=== PATIENT | male | born 2000 | race Caucasian/White ===

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

== ENCOUNTER 2024-05-11 15:00 | Inpatient (IN) | payer BC, MEDICAID ==
--- NOTE | 2024-05-11 16:06 | ED ---
General Adult HPI - General Chief complaint: Psychiatric Symptoms Stated complaint: Petition Time Seen by Provider: 05/11/24 15:37 Source: patient, RN notes reviewed, old records reviewed Mode of arrival: ambulatory Limitations: no limitations - History of Present Illness Initial comments: 24-year-old male presenting for psychiatric evaluation, patient has been petitioned for mental health evaluation. He states that he is stressed. He is not taking his medication. He states he is addicted to marijuana and Adderall. He denies suicidal or homicidal ideation currently but is vague in his responses. - Related Data Home Medications Medication Instructions Recorded Confirmed Dextroamphetamine/Amphetamine 20 mg PO BID 05/11/24 05/11/24 [Adderall Xr 20 mg Capsule] FLUoxetine HCL [PROzac] 40 mg PO DAILY 05/11/24 05/11/24 Allergies Allergy/AdvReac Type Severity Reaction Status Date / Time No Known Allergies Allergy Verified 05/11/24 16:58 Review of Systems ROS Statement: Those systems with pertinent positive or pertinent negative responses have been documented in the HPI. ROS Other: All systems not noted in ROS Statement are negative. Past Medical History Past Medical History: No Reported History History of Any Multi-Drug Resistant Organisms: MRSA Date of last positivie culture/infection: 2004 MDRO Source:: NASAL Additional Past Surgical History / Comment(s): LEFT ACL REPAIR (2018). Past Anesthesia/Blood Transfusion Reactions: No Reported Reaction Past Psychological History: Bipolar Smoking Status: Vaper Past Alcohol Use History: None Reported Past Drug Use History: None Reported, Marijuana - Past Family History Mother Family Medical History: No Reported History General Exam Limitations: no limitations General appearance: alert, anxious Head exam: Present: atraumatic, normocephalic Eye exam: Present: normal appearance, PERRL Respiratory exam: Present: normal lung sounds bilaterally. Absent: respiratory distress, wheezes Cardiovascular Exam: Present: regular rate, normal rhythm GI/Abdominal exam: Absent: distended Psychiatric exam: Present: depressed, anxious Skin exam: Present: warm, dry, intact Course Vital Signs 05/11/24 15:18 Temperature 98.3 F Pulse Rate 109 H Respiratory 20 Rate Blood Pressure 137/84 O2 Sat by Pulse 95 Oximetry Medical Decision Making - Medical Decision Making Was pt. sent in by a medical professional or institution (, PA, ENTERPRISE ENGINEER, urgent care, hospital, or retirement...) When possible be specific @ -No Did you speak to anyone other than the patient for history (EMS, parent, family, police, friend...)? What history was obtained from this source @ -No Did you review nursing and triage notes (agree or disagree)? Why? @ -I reviewed and agree with nursing and triage notes Were old charts reviewed (outside hosp., previous admission, EMS record, old EKG, old radiological studies, urgent care reports/EKG's, retirement records)? Report findings @ -No old charts were reviewed Differential Mental Health Depression, anxiety, bipolar, psychosis, schizophrenia, borderline personality, situational depression, adjustment disorder, behavioral disorder, brain tumor, malingering, substance abuse, encephalopathy, medication reaction, dementia, hypothyroidism, degenerative neurologic disorder, lupus.... This is not meant to be all-inclusive list EKG interpreted by me (3pts min.). @ -As above X-rays interpreted by me (1pt min.). @ -None done CT interpreted by me (1pt min.). @ -None done U/S interpreted by me (1pt. min.). @ -None done What testing was considered but not performed or refused? (CT, X-rays, U/S, labs)? Why? @ -None What meds were considered but not given or refused? Why? @ -None Did you discuss the management of the patient with other professionals (professionals i.e. , PA, ENTERPRISE ENGINEER, lab, RT, psych nurse, long term care social worker, public works director, teacher, project control officer, sales administration manager)? Give summary @ -No Was smoking cessation discussed for >3mins.? @ -No Was critical care preformed (if so, how long)? @ -No Were there social determinants of health that impacted care today? How? (Homelessness, low income, unemployed, alcoholism, drug addiction, t ransportation, low edu. Level, literacy, decrease access to med. care, [place] [facility], rehab)? @ -No Was there de-escalation of care discussed even if they declined (Discuss DNR or withdrawal of care, Hospice)? DNR status @ -No What co-morbidities impacted this encounter? (DM, HTN, Smoking, COPD, CAD, Cancer, CVA, ARF, Chemo, Hep., AIDS, mental health diagnosis, sleep apnea, morbid obesity)? @ -None Was patient admitted / discharged? Hospital course, mention meds given and route, prescriptions, significant lab abnormalities, going to OR and other pertinent info. @ -Patient medically cleared and evaluated by EPS, will be admitted to this institution for further psychiatric care. I completed a clinical certification on this patient. Undiagnosed new problem with uncertain prognosis? @ -No Drug Therapy requiring intensive monitoring for toxicity (Heparin, Nitro, Insulin, Cardizem)? @ -No Were any procedures done? @ -No Diagnosis/symptom? @ -Acute psychosis, medication noncompliance, depression Acute, or Chronic, or Acute on Chronic? @ -Acute on chronic Uncomplicated (without systemic symptoms) or Complicated (systemic symptoms)? @ -Default Side effects of treatment? @ -No Exacerbation, Progression, or Severe Exacerbation? @ -No Poses a threat to life or bodily function? How? (Chest pain, USA, AR, pneumonia, PE, COPD, DKA, ARF, appy, cholecystitis, CVA, Diverticulitis, Homicidal, Suicidal, threat to staff... and all critical care pts) @ -No - Lab Data Lab Results 05/11/24 Range/Units 17:04 Urine Opiates Screen Not Detected (NotDetected) Ur Oxycodone Screen Not Detected (NotDetected) Urine Methadone Screen Not Detected (NotDetected) Ur Barbiturates Screen Not Detected (NotDetected) U Tricyclic Antidepress Not Detected (NotDetected) Ur Phencyclidine Scrn Not Detected (NotDetected) Ur Amphetamines Screen Detected H (NotDetected) U Methamphetamines Scrn Not Detected (NotDetected) U Benzodiazepines Scrn Detected H (NotDetected) Urine Cocaine Screen Not Detected (NotDetected) U Marijuana (THC) Screen Detected H (NotDetected) Disposition Clinical Impression: Depression, Acute psychosis Disposition: ADMITTED IP TO THIS HOSP Condition: Stable Is patient prescribed a controlled substance at d/c from ED?: No Referrals: None,Stated [Primary Care Provider] - 1-2 days Time of Disposition: 19:07
[2024-05-11 17:26] LABS: Amphetamine Screen,Urine Detected (NotDetected); Barbiturate Screen,Urine Not Detected (NotDetected); Benzodiazepines Screen,Urine Detected (NotDetected); Cocaine Screen,Urine Not Detected (NotDetected); Methadone Screen, Urine Not Detected (NotDetected); Opiate Screen,Urine Not Detected (NotDetected); Oxycodone Screen, Urine Not Detected (NotDetected); Phencyclidine Screen,Urine Not Detected (NotDetected); Tricyclic Antidepressant,Urine Not Detected (NotDetected); Urn Cannabinoid Scrn Detected (NotDetected)
[2024-05-11] MEDS: traZODone HCL 50 MG TAB PO ONE (19:56)
[2024-05-11] MEDS ORDERED: ACETAMINOPHEN TAB 325 MG TAB PO PRN (21:34)
[2024-05-11] MEDS ORDERED: MAGNESIUM HYDROXIDE 2,400 MG/30 ML CUP PO PRN (21:34)
[2024-05-11] MEDS ORDERED: haloperidoL 5 MG TAB PO PRN (21:34)
[2024-05-11] MEDS ORDERED: MAG HYDROX/AL HYDROX/SIMETH 355 ML BOTTLE PO PRN (21:34)
[2024-05-11] MEDS ORDERED: LORazepam 2 MG/ML INJ IM PRN (21:34)
[2024-05-11] MEDS ORDERED: HALOPERIDOL LACTATE 5 MG/ML 1 ML VIAL IM PRN (21:34)
[2024-05-11] MEDS: LORazepam 2 MG/ML INJ IM STA (21:56)
[2024-05-12] MEDS: LORazepam 1 MG TAB PO PRN (03:37)
[2024-05-12] MEDS: NICOTINE 21MG/24HR PATCH TRANSDERM SCH (08:28)
[2024-05-12] MEDS: FLUoxetine HCL 20 MG CAP PO SCH (08:28)
[2024-05-12 11:02] LABS: Basophils % (A) 0 %; Eosinophils # (A) 0.1 k/uL (0-0.7); Eosinophils % (A) 1 %; HCT 47.3 % (39.0-53.0); HGB 15.7 gm/dL (13.0-17.5); Lymphocytes # (A) 1.4 k/uL (1.0-4.8); Lymphocytes % (A) 25 %; MCH 31.4 pg (25.0-35.0); MCHC 33.2 g/dL (31.0-37.0); MCV 94.7 fL (80.0-100.0); Monocytes # (A) 0.3 k/uL (0-1.0); Monocytes % (A) 6 %; Neutrophils # (A) 3.6 k/uL (1.3-7.7); Neutrophils % (A) 66 %; Platelet Count 425 k/uL (150-450); RBC 4.99 m/uL (4.30-5.90); RDW 13.6 % (11.5-15.5); WBC 5.5 k/uL (3.8-10.6)
[2024-05-12 11:26] LABS: ALT 31 U/L (4-49); AST 26 U/L (17-59); African American GFR (CKD) >90 (>60 ml/min/1.73 sqM); Albumin 4.7 g/dL (3.5-5.0); Alkaline Phosphatase 36 U/L (38-126); Anion Gap 10 mmol/L; Bilirubin, Delta 0.1 mg/dL (0.0-0.2); Bilirubin,Unconjugated 0.9 mg/dL (0.0-1.1); Blood Urea Nitrogen 12 mg/dL (9-20); Calcium 9.8 mg/dL (8.4-10.2); Carbon Dioxide 29 mmol/L (22-30); Chloride 102 mmol/L (98-107); Glucose 99 mg/dL (74-99); Non-African American GFR(CKD) >90 (>60 ml/min/1.73 sqM); Potassium 4.3 mmol/L (3.5-5.1); Sodium 141 mmol/L (137-145); Total Protein 7.3 g/dL (6.3-8.2)
--- NOTE | 2024-05-12 11:39 | P.MDCNMH ---
History of Present Illness H&P Date: 05/12/24 Chief Complaint: Medical evaluation for mental health unit 24-year-old male with medical history of ADHD, depression presented for mental health evaluation. Patient has no complaints at this time. Patient says he has no past medical history. He does report active nicotine use, occasional alcohol use. Otherwise denies any other symptoms. Patient is hemodynamically stable. Urine tox screen is positive for amphetamines, benzodiazepines, marijuana. CBC, CMP are unremarkable. COVID is negative. No imaging to review. All Systems reviewed and pertinent positives and negatives noted in HPI, all other symptoms are negative Gen: In NAD, non-toxic HEENT: normocephalic, atraumatic, hearing acuity is intant, mucous membranes moist CVS: perfusing all extremities well, no pitting edema, Respiratory: symmetric chest expansion, no accessory muscle use, GI: soft, NTTP, ND, : no suprapubic tenderness, no CVA tenderness MSK/Derm: no rashes, cyanosis Neuro: CN II-XII intact, no motor weakness, Psych: cooperative, euthymic mood, judgment and insight is intact Labs and imaging as above Assessment/plan: Nicotine abuse -NRT on request -Cessation counseling recommended Polysubstance abuse Depression -Care per primary team Thank you for this consult, please reach out with any questions or concerns. Past Medical History Past Medical History: No Reported History History of Any Multi-Drug Resistant Organisms: MRSA Date of last positivie culture/infection: 2004 MDRO Source:: NASAL Additional Past Surgical History / Comment(s): LEFT ACL REPAIR (2018). Past Anesthesia/Blood Transfusion Reactions: No Reported Reaction Past Psychological History: Bipolar Smoking Status: Vaper Past Alcohol Use History: None Reported Past Drug Use History: None Reported, Marijuana - Past Family History Mother Family Medical History: No Reported History Medications and Allergies Home Medications Medication Instructions Recorded Confirmed Type Dextroamphetamine/Amphetamine 20 mg PO BID 05/11/24 05/11/24 History [Adderall Xr 20 mg Capsule] FLUoxetine HCL [PROzac] 40 mg PO DAILY 05/11/24 05/11/24 History Allergies Allergy/AdvReac Type Severity Reaction Status Date / Time No Known Allergies Allergy Verified 05/11/24 16:58 Physical Exam Osteopathic Statement: *. No significant issues noted on an osteopathic struc tural exam other than those noted in the History and Physical/Consult. Vitals: Vital Signs Temp Pulse Pulse Resp BP BP Pulse Ox 05/12/24 08:29 96.8 F L 86 122/72 98 05/11/24 23:22 98.3 F 73 16 128/79 98 05/11/24 21:49 98 F 69 18 98/50 99 05/11/24 15:18 98.3 F 109 H 20 137/84 95 Intake and Output 05/11/24 05/12/24 05/12/24 22:59 06:59 14:59 Other: Weight 57.606 kg Cranial Nerve Examination - Cranial Nerves Cranial Nerve II- Optic: Intact Cranial Nerve III- Oculomotor: Intact Cranial Nerve IV- Trochlear: Intact Cranial Nerve V- Trigeminal: Intact Cranial Nerve - Abducens: Intact Cranial Nerve VII- Facial: Intact Cranial Nerve VIII- Auditory: Intact Cranial Nerve IX- Glossopharyngeal: Intact Cranial Nerve X- Vagus: Intact Cranial Nerve XI- Accessory: Intact Cranial Nerve XII- Hypoglossal: Intact Results CBC & Chem 7: 05/12/24 10:47 05/12/24 10:47 Labs: Abnormal Lab Results - Last 24 Hours (Table) 05/11/24 05/12/24 Range/Units 17:04 10:47 Alkaline Phosphatase 36 L (38-126) U/L Ur Amphetamines Screen Detected H (NotDetected) U Benzodiazepines Scrn Detected H (NotDetected) U Marijuana (THC) Screen Detected H (NotDetected)
--- NOTE | 2024-05-12 13:33 | P.HP ---
Psychiatric H&P - . H&P Date: 05/12/24 History & Physical: Allergies Allergy/AdvReac Type Severity Reaction Status Date / Time No Known Allergies Allergy Verified 05/11/24 16:58 Vital Signs Temp 96.8 F L 05/12/24 08:29 Pulse 86 05/12/24 08:29 Resp 16 05/11/24 23:22 BP 122/72 05/12/24 08:29 Pulse Ox 98 05/12/24 08:29 FiO2 Intake & Output 05/11/24 05/12/24 05/12/24 18:59 06:59 18:59 Weight 57.606 kg Laboratory Last Values WBC 5.5 k/uL (3.8-10.6) 05/12/24 10:47 RBC 4.99 m/uL (4.30-5.90) 05/12/24 10:47 Hgb 15.7 gm/dL (13.0-17.5) 05/12/24 10:47 Hct 47.3 % (39.0-53.0) 05/12/24 10:47 MCV 94.7 fL (80.0-100.0) 05/12/24 10:47 MCH 31.4 pg (25.0-35.0) 05/12/24 10:47 MCHC 33.2 g/dL (31.0-37.0) 05/12/24 10:47 RDW 13.6 % (11.5-15.5) 05/12/24 10:47 Plt Count 425 k/uL (150-450) 05/12/24 10:47 MPV 7.0 05/12/24 10:47 Neutrophils % 66 % 05/12/24 10:47 Lymphocytes % 25 % 05/12/24 10:47 Monocytes % 6 % 05/12/24 10:47 Eosinophils % 1 % 05/12/24 10:47 Basophils % 0 % 05/12/24 10:47 Neutrophils # 3.6 k/uL (1.3-7.7) 05/12/24 10:47 Lymphocytes # 1.4 k/uL (1.0-4.8) 05/12/24 10:47 Monocytes # 0.3 k/uL (0-1.0) 05/12/24 10:47 Eosinophils # 0.1 k/uL (0-0.7) 05/12/24 10:47 Basophils # 0.0 k/uL (0-0.2) 05/12/24 10:47 Sodium 141 mmol/L (137-145) 05/12/24 10:47 Potassium 4.3 mmol/L (3.5-5.1) 05/12/24 10:47 Chloride 102 mmol/L (98-107) 05/12/24 10:47 Carbon Dioxide 29 mmol/L (22-30) 05/12/24 10:47 Anion Gap 10 mmol/L 05/12/24 10:47 BUN 12 mg/dL (9-20) 05/12/24 10:47 Creatinine 0.80 mg/dL (0.66-1.25) 05/12/24 10:47 Est GFR (CKD-EPI)AfAm >90 (>60 ml/min/1.73 sqM) 05/12/24 10:47 Est GFR (CKD-EPI)NonAf >90 (>60 ml/min/1.73 sqM) 05/12/24 10:47 Glucose 99 mg/dL (74-99) 05/12/24 10:47 Calcium 9.8 mg/dL (8.4-10.2) 05/12/24 10:47 Total Bilirubin 1.0 mg/dL (0.2-1.3) 05/12/24 10:47 Conjugated Bilirubin 0.0 mg/dL (0.0-0.3) 05/12/24 10:47 Unconjugated Bilirubin 0.9 mg/dL (0.0-1.1) 05/12/24 10:47 Delta Bilirubin 0.1 mg/dL (0.0-0.2) 05/12/24 10:47 AST 26 U/L (17-59) 05/12/24 10:47 ALT 31 U/L (4-49) 05/12/24 10:47 Alkaline Phosphatase 36 U/L (38-126) L 05/12/24 10:47 Total Protein 7.3 g/dL (6.3-8.2) 05/12/24 10:47 Albumin 4.7 g/dL (3.5-5.0) 05/12/24 10:47 TSH 0.645 mIU/L (0.465-4.680) 05/12/24 10:47 Urine Opiates Screen Not Detected (NotDetected) 05/11/24 17:04 Ur Oxycodone Screen Not Detected (NotDetected) 05/11/24 17:04 Urine Methadone Screen Not Detected (NotDetected) 05/11/24 17:04 Ur Barbiturates Screen Not Detected (NotDetected) 05/11/24 17:04 U Tricyclic Antidepress Not Detected (NotDetected) 05/11/24 17:04 Ur Phencyclidine Scrn Not Detected (NotDetected) 05/11/24 17:04 Ur Amphetamines Screen Detected (NotDetected) H 05/11/24 17:04 U Methamphetamines Scrn Not Detected (NotDetected) 05/11/24 17:04 U Benzodiazepines Scrn Detected (NotDetected) H 05/11/24 17:04 Urine Cocaine Screen Not Detected (NotDetected) 05/11/24 17:04 U Marijuana (THC) Screen Detected (NotDetected) H 05/11/24 17:04 SARS-CoV-2 (PCR) Not Detected (Not Detectd) 05/11/24 19:22 05/12/24 13:09 IDENTIFYING DATA: Patient is a 24-year-old male, he is currently unmarried, has no kids, he lives with his grandmother, unemployed HPI: Patient presented to the hospital yesterday on 05/11 on a petition for psychiatric evaluation. Patient was apparently endorsing being stressed, not taking his medications. In the ER he spoke about being "addicted" to marijuana and Adderall. His UDS is positive for amphetamines THC THC and benzodiazepines. Patient was admitted involuntarily to mental health unit. Patient was seen in his room today. He apparently was agitated this morning and demanding to speak with his mother. He was seen laying in bed he appears to be disheveled in appearance, endorsing anxiety and unstable mood. He was tearful at times and appeared to be impulsive. States that he "could not get off my medications". Claims that he had to keep on taking it. He was referring to Adderall and Prozac. He states that he stopped cold turkey and developed nausea and vomiting, also mood swings. Claims that his friend brought him into the hospital for evaluation. He is minimizing any mood issues at this time is endorsing anxiety. Claims that he was upset earlier because "I could not talk to my mom". Claims that he was scared of the door handle earlier today. He is endorsing some paranoia at this time, claims that his sleep and appetite are poor. He has very poor insight poor judgment, does not believe he needs medications and wants to go home. Patient denies any suicidal or homicidal ideations intent or plan. At this time patient denies any auditory or visual hallucinations. Patient denies any flight of ideas racing thoughts and increased in goal directed behavior. Patient admits to using marijuana heavy use regularly, also claims that he has been using Adderall however was vague about how much he is using. Denies any other recreational drug use PAST PSYCHIATRIC HISTORY: Patient has a history of suppose it bipolar disorder. Claims that he is currently on Adderall and Prozac. Patient denies any previous psychiatric hospitalizations. Patient denies any psychiatric outpatient follow- up. Patient denies any history of suicide attempts in the past. Past Medical History: No Reported History History of Any Multi-Drug Resistant Organisms: MRSA Date of last positivie culture/infection: 2004 MDRO Source:: NASAL Additional Past Surgical History / Comment(s): LEFT ACL REPAIR (2018). 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 He is single he has no kids he lives with his grandmother. He denies any legal history. MENTAL STATUS EXAM: General Appearance: Patient appears to be thin, disheveled hair in appearance, wearing hospital gown, stated age is alert, irritable at times agitated and impulsive. Patient appears to have poor hygiene and grooming. Behavior: Patient is agitated at times, irritable and impulsive Speech: Patient's speech is fluent and nonpressured. Spontaneous. Irritable tone Mood/Affect: Patient reports their mood is "anxious", affect is congruent and labile, tearful at times Suicidality/Homicidality: Patient denies having any homicidal ideation intent or plan. Denies any suicidal ideations intent or plan Perceptions: Patient denies any visual hallucinations and denies any auditory hallucinations Though content/process: Minimizing his need for medications and to be in the hospital. Poor insight poor judgment. Memory and concentration: AOX3, grossly intact for the purposes of this session. Can spell "WORLD" backwards Judgment and insight: Poor/impulsive STRENGTHS/WEAKNESSES: strength is that patient is resilient. 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 Patient has not signed adult voluntary form and has not signed medication consent and is placed in patient's chart. A second certification was completed and along with petition will be filed for court. -Medications : Seroquel 50 mg nightly for mood stabilization/psychosis/sleep, trazodone 50 mg nightly as needed for insomnia. Can continue with Prozac 40 mg daily for mood/anxiety. Discontinue Adderall at this time -Ativan and Haldol PRN for agitation/aggression Patient states they do not want rehab and wish to cut back subtance use on their own -Patient was informed of the risks, benefits and side effects of the medications . Patient did not signed med consent form and was placed in chart. Patient was offered medication information and declined it -Internal Medicine consult to perform medical evaluation and physical. -NRT -not needed as patient does not smoke -SW on board for discharge planning. Encourage patient to participate in groups to work on coping skills. Will await deferral and court date. 05/12/24 13:25
[2024-05-12] MEDS: QUEtiapine 25 MG TAB PO STA (14:08)
[2024-05-12] MEDS: QUEtiapine 50 MG TAB PO SCH (21:42)
[2024-05-12] MEDS: traZODone HCL 50 MG TAB PO PRN (21:44)
[2024-05-13 07:51] LABS: Chol/HDL Ratio 2.94 Ratio; LDL Cholesterol,Calculated 84.9 mg/dL (0.0-131.0); VLDL Calculation 12.76 mg/dL (5.00-40.00)
--- NOTE | 2024-05-13 10:11 | P.PN ---
Progress Note - Text Progress Note Date: 05/13/24 Interval history: Patient was seen laying in his bed today and was directable and agreeable to speak with news writer. Patient continues to be intrusive at times, labile. He claims that his "sewage reticulation drafting officer" was going to visit him today. He continues to be focused on discharge very poor insight poor judgment poor impulse control. He lied to news writer and claims that he took all of his medications however did not take Prozac yesterday and Seroquel last night. He continues to state that he is not need treatment, we reviewed the court process. Claims that he slept fairly last night, has a fair appetite. Mainly keeping himself in his room. At this time patient denies any suicidal or homicidal ideations intent or plan. Denies any Auditory or visual hallucinations. Mental status exam: General Appearance: Patient appears to be thin, tall, disheveled appearance stated age is alert, directable, and attempts to be cooperative. Behavior: No agitated behavior. Patient is calm and directable, deceptive Speech: Patient's speech is fluent and nonpressured. [place] Mood/Affect: Mood is improving mildly, affect is congruent and labile Suicidality/Homicidality: Patient denies having any suicidal or homicidal ideation intent or plan. Perceptions: Patient denies any auditory or visual hallucinations. Though content/process: There is no evidence of any delusional thought content and thought process is linear and goal-directed. Deceptive Memory and concentration: AOX3, grossly intact for the purposes of this session Judgment and insight: Poor Assessment/Plan: Continue with current diagnosis. Patient continues to meet criteria for inpatient psychiatric admission for symptom stabilization and safety. Patient will be maintained on current psychotropic medication regimen. Monitor for medication compliance and for any psychotropic medication side effects. Will continue to monitor ongoing response to treatment. Encouraged participation in milieu.
[2024-05-14 08:46] VITALS: RESP 16
--- NOTE | 2024-05-14 11:30 | P.PN ---
Progress Note - Text Progress Note Date: 05/14/24 Interval History: Patient was seen today for psychiatric follow-up. He was laying in his bed to day, awoke very easily and agreeable to speak to sports book writer. He remains a bit intrusive, claims that his irritability and mood swings have been improving mildly. He continues to refuse the Seroquel at nighttime, has been sleeping on and off. We spoke more about the side effects benefits about the medication, he states that he was agreeable to take it for tonight. He was fairly focused on discharge planning within the next couple days. He states that he would probably be signing the deferral today and is agreeing to treatment. Claims that his appetite is improving. We reflected back on reducing the amount of marijuana he smokes and also the Adderall which most likely has been contributing to his mood swings and psychosis. At this time he is denying any suicidal homicidal ideations intent or plan denying any auditory or visual hallucinations. Not reporting any side effects at this time. MENTAL STATUS EXAM: General Appearance: Patient appears to be thin, disheveled hair in appearance, wearing hospital gown, stated age is alert, not agitated and veins impulsive. Patient appears to have improving mildly hygiene and grooming. Behavior: Patient is not agitated, not irritable, remains a bit impulsive Speech: Patient's speech is fluent and nonpressured. Spontaneous. Not irritable today Mood/Affect: Patient reports their mood is "better", affect is congruent and labile improving Suicidality/Homicidality: Patient denies having any homicidal ideation intent or plan. Denies any suicidal ideations intent or plan Perceptions: Patient denies any visual hallucinations and denies any auditory hallucinations Though content/process: More cooperative today, focused on his medications, focused on discharge. Not endorsing delusions or paranoia. Memory and concentration: AOX3, grossly intact for the purposes of this session Judgment and insight: Poor/impulsive, improving mildly IMPRESSIONS: Psychosis unspecified, rule out secondary to substance use/withdrawal, versus bipolar disorder versus schizophrenia amphetamine abuse Cannabis use disorder severe PLAN: -Patient is admitted under involuntary status to MHU for stabilization of psychiatric symptoms and safety. Patient has not signed adult voluntary form and has not signed medication consent and is placed in patient's chart. -Medications : Seroquel 50 mg nightly for mood stabilization/psychosis/sleep, trazodone 50 mg nightly as needed for insomnia. Prozac 40 mg daily for mood/anxiety. -Ativan and Haldol PRN for agitation/aggression -NRT -not needed as patient does not smoke -SW on board for discharge planning. Encourage patient to participate in groups to work on coping skills. Deferral set for today, full court hearing on 05/16. Hopeful for discharge in 2 to 3 days if patient is improving, he is refusing rehab at this time.
--- NOTE | 2024-05-15 10:21 | P.PN ---
Progress Note - Text Progress Note Date: 05/15/24 Interval History: Patient was seen today for psychiatric follow-up. Patient was wandering the h allways agreeable to speak to science writer. Claims that he feels another patient has been making him feel a "uneasy" because he is trying to be his friend. He claims that he has been showering going to groups, has been doing well. Claims that he is not having mood swings any longer feels less irritable not endorsing depression today. Claims that he would like to go home within the next couple of days. States that he felt "a little off" after taking the Seroquel however is agreeable to continue trying it at nighttime and claims that during the day he feels better. Denying any mood swings at this time. Appears to have mild improvement in his insight and judgment. Claims that he signed the deferral with the research attorney yesterday. At this time he is denying any suicidal homicidal ideations intent or plan denying any auditory or visual hallucinations. Not reporting any side effects at this time. MENTAL STATUS EXAM: General Appearance: Patient appears to be thin, disheveled hair in appearance, wearing hospital gown, stated age is alert, not agitated. Patient appears to have improving mildly hygiene and grooming. Behavior: Patient is not agitated, not irritable, more cooperative today Speech: Patient's speech is fluent and nonpressured. Spontaneous. Not irritable today Mood/Affect: Patient reports their mood is "alright", affect is congruent and labile improving Suicidality/Homicidality: Patient denies having any homicidal ideation intent or plan. Denies any suicidal ideations intent or plan Perceptions: Patient denies any visual hallucinations and denies any auditory hallucinations Though content/process: More cooperative today, focused on his medications, focused on discharge. Not endorsing delusions or paranoia. Memory and concentration: AOX3, grossly intact for the purposes of this session Judgment and insight: improving mildly IMPRESSIONS: Psychosis unspecified, rule out secondary to substance use/withdrawal, versus bipolar disorder versus schizophrenia amphetamine abuse Cannabis use disorder severe PLAN: -Patient is admitted under involuntary status to MHU for stabilization of psychiatric symptoms and safety. Patient has not signed adult voluntary form and has not signed medication consent and is placed in patient's chart. -Medications : Seroquel 50 mg nightly for mood stabilization/psychosis/sleep, trazodone 50 mg nightly as needed for insomnia. Prozac 40 mg daily for mood/anxiety. -Ativan and Haldol PRN for agitation/aggression -NRT -not needed as patient does not smoke -SW on board for discharge planning. Encourage patient to participate in groups to work on coping skills. patient deferred with his research attorney on 05/14. Hopeful for discharge in 1-2 if patient is improving, he is refusing rehab at this time.
[2024-05-16 06:53] VITALS: BP 136/63; PULSE 61; TEMP 98.1
[2024-05-16] MEDS: IBUPROFEN 600 MG TAB PO PRN (07:50)
--- NOTE | 2024-05-16 10:21 | P.DS ---
Providers Date of admission: 05/11/24 21:27 Expected date of discharge: 05/16/24 Attending physician: Werner Good MD Consults: 05/11/24 21:34 Consult Physician Routine Consulting Provider: Presley Strong Consult Reason/Comments: History and Physical, New Admission Do you want consulting provider notified?: Yes Primary care physician: Stated None - Discharge Diagnosis(es) (1) Unspecified psychosis Current Visit: Yes Status: Acute Priority: High (2) Amphetamine abuse Current Visit: Yes Status: Acute Priority: High (3) Cannabis use disorder, severe, dependence Current Visit: Yes Status: Acute Priority: High (4) Nicotine dependence Current Visit: Yes Status: Acute Priority: Low Hospital Course: Admission HPI: Admission note was completed by sba underwriter" Patient is a 24-year-old male, he is currently unmarried, has no kids, he lives with his grandmother, unemployed. Patient presented to the hospital yesterday on 05/11 on a petition for psychiatric evaluation. Patient was apparently endorsing being stressed, not taking his medications. In the ER he spoke about being "addicted" to marijuana and Adderall. His UDS is positive for amphetamines THC THC and benzodiazepines. Patient was admitted involuntarily to mental health unit. Patient was seen in his room today. He apparently was agitated this morning and demanding to speak with his mother. He was seen laying in bed he appears to be disheveled in appearance, endorsing anxiety and unstable mood. He was tearful at times and appeared to be impulsive. States that he "could not get off my medications". Claims that he had to keep on taking it. He was referring to Adderall and Prozac. He states that he stopped cold turkey and developed nausea and vomiting, also mood swings. Claims that his friend brought him into the hospital for evaluation. He is minimizing any mood issues at this time is endorsing anxiety. Claims that he was upset earlier because "I could not talk to my mom". Claims that he was scared of the door handle earlier today. He is endorsing some paranoia at this time, claims that his sleep and appetite are poor. He has very poor insight poor judgment, does not believe he needs medications and wants to go home. Patient denies any suicidal or homicidal ideations intent or plan. At this time patient denies any auditory or visual hallucinations. Patient denies any flight of ideas racing thoughts and increased in goal directed behavior. Patient admits to using marijuana heavy use regularly, also claims that he has been using Adderall however was vague about how much he is using. Denies any other recreational drug use" Hospital course: Upon admission to the unit patient was admitted involuntarily on a petition and certificate and a second certificate was completed and faxed to the courts. Patient ended up signing a deferral with the assistant attorney general and agreeing to treatment. Patient was initially bizarre, impulsive labile however with time and treatment patient got along well with other patients on the unit and followed unit protocol. Patient was compliant with the medications and denied any side effects throughout hospital course. Patient was started on Seroquel 50 mg nightly for mood stabilization/psychosis/sleep, trazodone as needed for insomnia, Prozac increased to dose of 40 mg daily for mood/anxiety. Discontinued off of Adderall due to suspected abuse and intolerance. Patient spoke of his stressors and engaged in therapy both group/activity therapy. Patient was also seen by medical team for history and physical exam. Throughout the course of the hospitalization patient gradually improved with regards to mood, anxiety, psychosis, sleep and became more future oriented with improved insight and judgment. On the day of discharge patient denied any suicidal or homicidal ideations intent or plan denied any auditory or visual hallucinations. Patient endorsed wanting to live for their health and family. The patient denied any access to guns or weapons. Patient denied any paranoia and did not endorse any delusions. Patient does have a significant history of substance abuse and was counseled on abstaining from all substances including alcohol and marijuana. Patient was offered however declined inpatient substance-abuse rehab. Patient elected to do outpatient substance use treatment program through their outpatient provider.. Patient was also counseled on the medications and need for regular compliance and was encouraged to follow-up with their outpatient appointment for mental health and also for primary care. Prior to discharge a family meeting will be arranged by social media community manager to answer any questions and ensure safety upon discharge incuding making sure that guns/weapons are either removed from the home or locked away. Mental status exam: General Appearance: Patient appears to be thin, longer hair, stated age is alert, pleasant, and cooperative. Patient is in no acute distress and has improved hygiene and grooming Behavior: Patient is calmly seated without any agitated behavior. Speech: Patient's speech is fluent and nonpressured. Mood/Affect: Patient reports their mood is "good", affect is congruent and euthymic. Suicidality/Homicidality: Patient denies having any suicidal or homicidal ideation intent or plan. Perceptions: Patient denies any auditory or visual hallucinations. Though content/process: There is no evidence of any delusional thought content and thought process is linear and goal-directed. More future oriented Memory and concentration: AOX3, grossly intact for the purposes of this session. Can spell "WORLD" backwards correctly. Judgment and insight: improved with guarded prognosis Impression: Psychosis unspecified Amphetamine abuse Cannabis use disorder severe dependence Nicotine dependence Plan: -Continue with discharge today as patient has improved and stabilized psychiatrically and is not currently an imminent threat to themself and/or others. Patient will remain at chronically elevated risk for harm to self and/or others due to their impulsivity and substance abuse. -Continue medications: Seroquel 50 mg nightly for mood stabilization/psychosis/sleep, Prozac 40 mg daily for mood/anxiety -Patient was counseled on the need for medication compliance and appropriate follow-up at mental health and also primary care for medical issues. Patient verbalized understanding and agreed. -Social work to arrange for and conduct family meeting to ensure safety upon discharge and answer any questions/concerns. also to ensure safe home environment that guns/weapons are either removed from the home or locked away. Social work also to arrange for patients follow up appointments for psychiatric care along with follow up with primary care provider. -Patient counseled on abstaining from recreational drugs and marijuana and alcohol. Was informed/educated on the adverse effects on their physical and mental health. Patient verbally agreed and understood. Patient was offered substance abuse treatment however declined at this time. -Patient was instructed to return to the hospital or seek immediate medical care if their psychiatric or medical symptoms do worsen or reoccur. Allergies Allergy/AdvReac Type Severity Reaction Status Date / Time No Known Allergies Allergy Verified 05/11/24 16:58 Laboratory Results WBC 5.5 k/uL (3.8-10.6) 05/12/24 10:47 RBC 4.99 m/uL (4.30-5.90) 05/12/24 10:47 Hgb 15.7 gm/dL (13.0-17.5) 05/12/24 10:47 Hct 47.3 % (39.0-53.0) 05/12/24 10:47 MCV 94.7 fL (80.0-100.0) 05/12/24 10:47 MCH 31.4 pg (25.0-35.0) 05/12/24 10:47 MCHC 33.2 g/dL (31.0-37.0) 05/12/24 10:47 RDW 13.6 % (11.5-15.5) 05/12/24 10:47 Plt Count 425 k/uL (150-450) 05/12/24 10:47 MPV 7.0 05/12/24 10:47 Neutrophils % 66 % 05/12/24 10:47 Lymphocytes % 25 % 05/12/24 10:47 Monocytes % 6 % 05/12/24 10:47 Eosinophils % 1 % 05/12/24 10:47 Basophils % 0 % 05/12/24 10:47 Neutrophils # 3.6 k/uL (1.3-7.7) 05/12/24 10:47 Lymphocytes # 1.4 k/uL (1.0-4.8) 05/12/24 10:47 Monocytes # 0.3 k/uL (0-1.0) 05/12/24 10:47 Eosinophils # 0.1 k/uL (0-0.7) 05/12/24 10:47 Basophils # 0.0 k/uL (0-0.2) 05/12/24 10:47 Sodium 141 mmol/L (137-145) 05/12/24 10:47 Potassium 4.3 mmol/L (3.5-5.1) 05/12/24 10:47 Chloride 102 mmol/L (98-107) 05/12/24 10:47 Carbon Dioxide 29 mmol/L (22-30) 05/12/24 10:47 Anion Gap 10 mmol/L 05/12/24 10:47 BUN 12 mg/dL (9-20) 05/12/24 10:47 Creatinine 0.80 mg/dL (0.66-1.25) 05/12/24 10:47 Est GFR (CKD-EPI)AfAm >90 (>60 ml/min/1.73 sqM) 05/12/24 10:47 Est GFR (CKD-EPI)NonAf >90 (>60 ml/min/1.73 sqM) 05/12/24 10:47 Glucose 99 mg/dL (74-99) 05/12/24 10:[address] Glu mg/dL 103 mg/dL 05/12/24 10:47 Hemoglobin A1c 5.2 % (<=6.0) 05/12/24 10:47 Calcium 9.8 mg/dL (8.4-10.2) 05/12/24 10:47 Total Bilirubin 1.0 mg/dL (0.2-1.3) 05/12/24 10:47 Conjugated Bilirubin 0.0 mg/dL (0.0-0.3) 05/12/24 10:47 Unconjugated Bilirubin 0.9 mg/dL (0.0-1.1) 05/12/24 10:47 Delta Bilirubin 0.1 mg/dL (0.0-0.2) 05/12/24 10:47 AST 26 U/L (17-59) 05/12/24 10:47 ALT 31 U/L (4-49) 05/12/24 10:47 Alkaline Phosphatase 36 U/L (38-126) L 05/12/24 10:47 Total Protein 7.3 g/dL (6.3-8.2) 05/12/24 10:47 Albumin 4.7 g/dL (3.5-5.0) 05/12/24 10:47 Triglycerides 63.80 mg/dL (0.00-149.00) 05/12/24 10:47 Cholesterol 148.00 mg/dL (0.00-200.00) 05/12/24 10:47 LDL Cholesterol, Calc 84.9 mg/dL (0.0-131.0) 05/12/24 10:47 VLDL Cholesterol, Calc 12.76 mg/dL (5.00-40.00) 05/12/24 10:47 HDL Cholesterol 50.30 mg/dL (40.00-60.00) 05/12/24 10:47 Cholesterol/HDL Ratio 2.94 Ratio 05/12/24 10:47 TSH 0.645 mIU/L (0.465-4.680) 05/12/24 10:47 Urine Opiates Screen Not Detected (NotDetected) 05/11/24 17:04 Ur Oxycodone Screen Not Detected (NotDetected) 05/11/24 17:04 Urine Methadone Screen Not Detected (NotDetected) 05/11/24 17:04 Ur Barbiturates Screen Not Detected (NotDetected) 05/11/24 17:04 U Tricyclic Antidepress Not Detected (NotDetected) 05/11/24 17:04 Ur Phencyclidine Scrn Not Detected (NotDetected) 05/11/24 17:04 Ur Amphetamines Screen Detected (NotDetected) H 05/11/24 17:04 U Methamphetamines Scrn Not Detected (NotDetected) 05/11/24 17:04 U Benzodiazepines Scrn Detected (NotDetected) H 05/11/24 17:04 Urine Cocaine Screen Not Detected (NotDetected) 05/11/24 17:04 U Marijuana (THC) Screen Detected (NotDetected) H 05/11/24 17:04 SARS-CoV-2 (PCR) Not Detected (Not Detectd) 05/11/24 19:22 Vital Signs Temp 98.1 F 05/16/24 06:52 Pulse 61 05/16/24 06:52 Resp 16 05/15/24 06:48 BP 136/63 05/16/24 06:52 Pulse Ox 99 05/16/24 06:52 FiO2 Patient Condition at Discharge: Stable Plan - Discharge Summary New Discharge Prescriptions: New Nicotine 21Mg/24Hr Patch [Habitrol] 1 patch TRANSDERM DAILY 14 Days #14 patch QUEtiapine [SEROquel] 50 mg PO HS 30 Days #30 tab Continue FLUoxetine HCL [PROzac] 40 mg PO DAILY 30 Days #30 cap Discontinued Dextroamphetamine/Amphetamine [Adderall Xr 20 mg Capsule] 20 mg PO BID Discharge Medication List FLUoxetine HCL [PROzac] 40 mg PO DAILY 30 Days #30 cap 05/16/24 [Rx] Nicotine 21Mg/24Hr Patch [Habitrol] 1 patch TRANSDERM DAILY 14 Days #14 patch 05/16/24 [Rx] QUEtiapine [SEROquel] 50 mg PO HS 30 Days #30 tab 05/16/24 [Rx] Follow up Appointment(s)/Referral(s): [facility] [Other] - 05/18/24 6:00 pm [facility] [NON-STAFF] - 1 Week Patient Instructions/Handouts: Schizophrenia (DC), Brief Psychotic Disorder (DC) Activity/Diet/Wound Care/Special Instructions: [facility] Discharge Info Avoid the use of street drugs and alcohol. Take all medications as prescribed. When you are in need of refills on your medications, please contact your outpatient medical provider and/or outpatient psychiatrist. Please go to your scheduled outpatient appointments for aftercare treatment. If symptoms return or become worse, call the crisis line at or and/or visit the nearest emergency room for assistance. [place] Suicide and Crisis Lifeline - call or text [phone]. Discharge Disposition: HOME SELF-CARE
== END 2024-05-16 11:40 | disposition home or self-care (01) | DRG 885 ==
LOC: EC 15:00 → 3MHU 21:27
PROVIDERS: ADMIT Psychiatry & Neurology Psychiatry; ATTEND Psychiatry & Neurology Psychiatry
DX: F32.3 Major depressive disorder, single episode, severe with psychotic features (principal); F12.20 Cannabis dependence, uncomplicated; F15.10 Other stimulant abuse, uncomplicated; F90.9 Attention-deficit hyperactivity disorder, unspecified type; F17.200 Nicotine dependence, unspecified, uncomplicated; F41.9 Anxiety disorder, unspecified; Z79.899 Other long term (current) drug therapy; Z28.310 Unvaccinated for COVID-19; Z28.21 Immunization not carried out because of patient refusal
CPT/HCPCS: 80053; 80061; 80306; 82075; 82248; 83036; 84443; 85025; 87635; 99285